=== PATIENT | male | born 1965 | race Caucasian/White ===

== ENCOUNTER 2017-06-21 07:20 | Emergency (ER) | payer OTHER ==
[2017-06-21] MEDS: ONDANSETRON 4 MG ORAL DISINTEGRATING TAB (S0181) PO (08:18)
[2017-06-21] MEDS: MORPHINE 4 MG/ML 1ML VIAL (J2270) SC (08:18)
== END 2017-06-21 09:25 | disposition home or self-care (01) ==
LOC: M ED 07:20
DX: S93.492A Sprain of other ligament of left ankle, initial encounter (principal); M25.862 Other specified joint disorders, left knee; W00.0XXA Fall on same level due to ice and snow, initial encounter; Y92.89 Other specified places as the place of occurrence of the external cause; I10 Essential (primary) hypertension; F32.9 Major depressive disorder, single episode, unspecified; F17.210 Nicotine dependence, cigarettes, uncomplicated; Z79.899 Other long term (current) drug therapy
CPT/HCPCS: J2270

== ENCOUNTER 2017-06-28 11:22 | Day surgery (SDC) | payer OTHER ==
[2017-06-28] MEDS ORDERED: ROPIvacaine 0.5% 30 ML INJECTION (J2795 PER 1MG) (11:23)
[2017-06-28] MEDS ORDERED: EPINEPHrine INJ 1 MG/ML 1ML AMP (11:23)
[2017-06-28] MEDS ORDERED: dexameTHASONE 10 MG/1 ML VIAL PRES.FREE (J1100) (11:23)
[2017-06-28] MEDS: LR 1,000 ML IV (13:07)
[2017-06-28] MEDS ORDERED: ONDANSETRON 4MG/2ML VIAL (J2405) As Ordered (14:37)
[2017-06-28] MEDS ORDERED: LIDOCAINE 2% INJ 100 MG/5 ML SDV (FOR ANES.) As Ordered (14:37)
[2017-06-28] MEDS ORDERED: dexameTHASONE 4 MG/ML 1ML VIAL (J1100) As Ordered (14:37)
[2017-06-28] MEDS ORDERED: MIDAZOLAM INJ 2 MG/2 ML VIAL (J2250) As Ordered ×2 (14:37→17:58)
[2017-06-28] MEDS ORDERED: fentaNYL 100 MCG/2 ML INJECTION (J3010) As Ordered ×3 (14:37→17:58)
[2017-06-28] MEDS ORDERED: PROPOFOL 200 MG/20 ML VIAL As Ordered (14:37)
[2017-06-28] MEDS: ceFAZolin 1GM INJ (J0690 PER 500MG) As Ordered (15:30)
[2017-06-28] MEDS ORDERED: HYDROmorphone HCL 2 MG/ML 1ML VIAL (J1170) As Ordered (15:51)
[2017-06-28] MEDS ORDERED: LABETALOL HCL 100 MG/20 ML VIAL As Ordered (16:09)
[2017-06-28] MEDS ORDERED: MORPHINE 10 MG/ML 1ML VIAL (J2270) As Ordered (17:01)
[2017-06-28] MEDS ORDERED: NORCO, ANEXSIA 5/325MG TABLET (HYDROcodone/ACETAMINOPHEN) As Ordered (17:01)
[2017-06-28] MEDS: fentaNYL 100 MCG/2 ML INJECTION (J3010) IV ×4 (17:05→17:21)
[2017-06-28] MEDS: NORCO, ANEXSIA 5/325MG TABLET (HYDROcodone/ACETAMINOPHEN) PO ×2 (17:07→17:39)
[2017-06-28] MEDS ORDERED: ONDANSETRON 4MG/2ML VIAL (J2405) IV (17:15)
[2017-06-28] MEDS ORDERED: LR 1,000 ML IV ×2 (17:15)
[2017-06-28] MEDS ORDERED: NORCO, ANEXSIA 5/325MG TABLET (HYDROcodone/ACETAMINOPHEN) PO ×2 (17:15)
[2017-06-28] MEDS: MORPHINE 4 MG/ML 1ML VIAL (J2270) IV (17:29)
== END 2017-06-28 21:50 | disposition home or self-care (01) ==
LOC: M SDC 21:50
DX: S76.112A Strain of left quadriceps muscle, fascia and tendon, initial encounter (principal); M25.562 Pain in left knee; W18.49XA Other slipping, tripping and stumbling without falling, initial encounter; Y92.89 Other specified places as the place of occurrence of the external cause; Y99.9 Unspecified external cause status; I10 Essential (primary) hypertension; Z79.899 Other long term (current) drug therapy; F17.210 Nicotine dependence, cigarettes, uncomplicated; Y93.9 Activity, unspecified
CPT/HCPCS: 27385